=== PATIENT | female | born 1965 | race African-American/Black ===

== ENCOUNTER 2017-07-14 02:08 | Emergency (ER) | payer MEDICAID ==
[~2017-07-14] VITALS: Ht 175.3 cm; Wt 93.0 kg
[2017-07-14] MEDS ORDERED: IBUPROFEN 600MG TABLET PO ONE (06:30)
[2017-07-14 07:10] VITALS: BP 104/74
== END 2017-07-14 07:41 | disposition home or self-care (01) ==
LOC: ER 02:08
DX: S92.911A Unspecified fracture of right toe(s), initial encounter for closed fracture (principal); F17.200 Nicotine dependence, unspecified, uncomplicated; W01.0XXA Fall on same level from slipping, tripping and stumbling without subsequent striking against object, initial encounter; Y93.89 Activity, other specified; Y92.89 Other specified places as the place of occurrence of the external cause; Y99.8 Other external cause status
CPT/HCPCS: 73630; 99284; Z7610

== ENCOUNTER 2018-08-16 04:30 | Emergency (ER) | payer MEDICAID ==
[~2018-08-16] VITALS: Ht 175.3 cm; Wt 82.0 kg
[2018-08-16 05:24] LABS: BASOPHILS % 0.6 % (0.0-2.0); EOSINOPHILS % 0.8 % (0.0-5.0); HEMATOCRIT. 35.2 % (36.0-48.0); HEMOGLOBIN. 12.2 g/dL (12.0-16.0); LYMPHOCYTES % 23.2 % (20.0-50.0); MEAN CORPUSCULAR HEMOGLOBIN 29.4 pg (28.0-32.0); MEAN CORPUSCULAR VOLUME 84.7 fL (81.0-99.0); MEAN PLATELET VOLUME 9.1 fl (7.4-10.4); MONOCYTES % 8.6 % (2.0-8.0); NEUTROPHILS % 66.8 % (40.0-76.0); PLATELET 284 x1000/uL (130-400); RED BLOOD CELL COUNT 4.16 mill/uL (4.2-5.4); RED CELL DISTRIBUTION WIDTH 14.9 % (11.6-14.6)
[2018-08-16 05:30] LABS: CHLORIDE 110 mEq/L (98-107)
[2018-08-16] MEDS ORDERED: SODIUM CHLORIDE 0.9% 1,000 ML IV ONE (06:20)
[2018-08-16 09:37] LABS: CLARITY URINE CLOUDY (CLEAR); COLOR URINE YELLOW (YELLOW); KETONES URINE NEGATIVE (NEGATIVE); LEUKOCYTE ESTERASE URINE 3+ (NEGATIVE); NITRITE URINE NEGATIVE (NEGATIVE); OCCULT BLOOD URINE NEGATIVE (NEGATIVE); PH URINE 6.5 (4.5-8.0); PROTEIN URINE NEGATIVE (NEGATIVE); SPECIFIC GRAVITY URINE 1.013 (1.005-1.030); UROBILINOGEN URINE 0.2 E.U./dL (0.2-1.0)
[2018-08-16] MEDS ORDERED: CEFTRIAXONE 2 G PREMIX 50 ML IV NR (10:54)
[2018-08-16 15:03] VITALS: BP 110/60
== END 2018-08-16 15:03 | disposition home or self-care (01) ==
LOC: ER 04:30
DX: R55 Syncope and collapse (principal); N39.0 Urinary tract infection, site not specified; J45.909 Unspecified asthma, uncomplicated; D86.9 Sarcoidosis, unspecified; H53.489 Generalized contraction of visual field, unspecified eye; F17.200 Nicotine dependence, unspecified, uncomplicated
CPT/HCPCS: 36415; 71045; 80053; 81003; 83880; 84484; 85025; 93005; 96361; 96365; 99284; J0696; J7030